=== PATIENT | male | born 1960 | race Caucasian/White ===

== ENCOUNTER 2016-06-16 19:02 | Emergency (ER) | payer OTHER ==
[2016-06-16 19:20] VITALS: BP 158/88; PULSE 87; TEMP 98.2; BMI 30.1
--- NOTE | 2016-06-16 20:10 | PDOC ---
History of Present Illness <Bob Lockhart - Last Filed: 06/16/16 21:50> - General History Source: Patient, Family Exam Limitations: No Limitations - History of Present Illness Initial Comments: 06/16/16 20:51 The patient is a 56 year old male with no significant past medical history who presents to the emergency department today complaining of a laceration to his left hand. The patient states that he was walking his dog down the stair when his dog suddenly switched directions and he fell and cut his hand on the railing. The patient states that the infected area is tender particularly to palpation. The patient present for further evaluation. The patient denies chest pain, cough, and SOB. The patent denies fever, chills, and sweats. The patient denies nausea, vomiting, and diarrhea. <Yoel Prado - Last Filed: 06/16/16 22:12> - General Chief Complaint: Injury Stated Complaint: MULT LAC LT HAND Past History - Past Medical History Other medical history: DENIES - Immunization History Immunization Up to Date: Yes - Psycho/Social/Smoking Cessation Hx Anxiety: No Suicidal Ideation: No Smoking History: Never smoked <Bob Lockhart - Last Filed: 06/16/16 21:50> <Yoel Prado - Last Filed: 06/16/16 22:12> - Past Medical History Allergies/Adverse Reactions: Allergies Allergy/AdvReac Type Severity Reaction Status Date / Time No Known Allergies Allergy Unverified 06/16/16 19:20 Home Medications: Ambulatory Orders Sulfamethoxazole/Trimethoprim [Bactrim Ds -] 1 tab PO BID #14 tablet 06/16/16 Review of Systems - Review of Systems Able to Perform ROS?: Yes Comments:: 06/16/16 20:55 GENERAL/CONSTITUTIONAL: No fever or chills. No weakness. HEAD, EYES, EARS, NOSE AND THROAT: No change in vision. No ear pain or discharge. No sore throat. CARDIOVASCULAR: No chest pain or shortness of breath. RESPIRATORY: No cough, wheezing, or hemoptysis. GASTROINTESTINAL: No nausea, vomiting, diarrhea or constipation. GENITOURINARY: No dysuria, frequency, or change in urination. MUSCULOSKELETAL: (+) Laceration of the left hand. SKIN: No rash NEUROLOGIC: No headache, vertigo, loss of consciousness, or change in strength/ sensation. ENDOCRINE: No increased thirst. No abnormal weight change. HEMATOLOGIC/LYMPHATIC: No anemia, easy bleeding, or history of blood clots. ALLERGIC/IMMUNOLOGIC: No hives or skin allergy. <Yoel Prado - Last Filed: 06/16/16 22:12> *Physical Exam - Vital Signs Last Vital Signs Temp Pulse Resp BP Pulse Ox 98.2 F 87 18 158/88 100 06/16/16 19:05 06/16/16 19:05 06/16/16 19:05 06/16/16 19:05 06/16/16 19:05 <Bob Lockhart - Last Filed: 06/16/16 21:50> - Vital Signs Last Vital Signs Temp Pulse Resp BP Pulse Ox 98.2 F 87 18 158/88 100 06/16/16 19:05 06/16/16 19:05 06/16/16 19:05 06/16/16 19:05 06/16/16 19:05 - Physical Exam Comments: 06/16/16 20:56 GENERAL: Awake, alert, and fully oriented, in no acute distress HEAD: No signs of trauma EYES: PERRLA, EOMI, sclera anicteric, conjunctiva clear ENT: Auricles normal inspection, hearing grossly normal, nares patent, oropharynx clear without exudates. Moist mucosa NECK: Normal ROM, supple, no lymphadenopathy, JVD, or masses LUNGS: Breath sounds equal, clear to auscultation bilaterally. No wheezes, and no crackles HEART: Regular rate and rhythm, normal S1 and S2, no murmurs, rubs or gallops ABDOMEN: Soft, nontender, normoactive bowel sounds. No guarding, no rebound. No masses EXTREMITIES: (+) 3 cm laceration of the left hand going from the web area towards the thumb along the base of the index finger. Normal range of motion, no edema. No clubbing or cyanosis. No cords. NEUROLOGICAL: Cranial nerves II through XII grossly intact. Normal speech, normal gait SKIN: Warm, Dry, normal turgor, no rashes or lesions noted. <Yoel Prado - Last Filed: 06/16/16 22:12> Medical Decision Making - Medical Decision Making 06/16/16 20:58 MDM: The patient will receive a hand X-Ray. The wound will be cleaned, numbed, sutured, and covered. 06/16/16 21:47 MDM: The patient received 7cc Lidocaine (1%) injected locally, 12 bites continuous running locked 3-o nylon, and antibiotics. The wound was just skin and fat (no nerves, foreign bodies, or tendons). <Yoel Prado - Last Filed: 06/16/16 22:12> *DC/Admit/Observation/Transfer - Discharge Dispostion Admit: No - Attestations Physician Attestion: 06/16/16 20:09 I, Dr. Bob Lockhart, attest that this document has been prepared under my direction and personally reviewed by me in its entirety. I further attest, that it accurately reflects all work, treatment, procedures and medical decision -making performed by me. <Bob Lockhart - Last Filed: 06/16/16 21:50> - Attestations Scribe Attestion: 06/16/16 20:58 Documentation prepared by Yoel Prado, acting as medical reception for Bob Lockhart MD. <Yoel Prado - Last Filed: 06/16/16 22:12> Diagnosis at time of Disposition: Laceration of hand Qualifiers: Encounter type: initial encounter Laterality: left Qualified Code(s): S61.412A - Laceration without foreign body of left hand, initial encounter - Discharge Dispostion Disposition: HOME Condition at time of disposition: Good - Prescriptions Prescriptions: Sulfamethoxazole/Trimethoprim [Bactrim Ds -] 1 tab PO BID #14 tablet - Patient Instructions Printed Discharge Instructions: How to Care for a Surgical Wound-Stitches Additional Instructions: Luís- It was really a pleasure to care for you tonight. Watch it closely and make sure it does not get infected. Return to us if any problems...... Otherwise just listen to your and life will be great! Best- Dr. Rojas (Richy)
[2016-06-16] MEDS ORDERED: LIDOCAINE HCL 2% (20ML MULTI-DOSE VIAL) NR ONE (20:12)
[2016-06-16] MEDS ORDERED: SULFAMETHOXAZOLE/TRIMETHOPRIM 800MG/160MG D.S. TABLET PO ONE (21:49)
[2016-06-16] MEDS ORDERED: SULFAMETHOXAZOLE/TRIMETHOPRIM 800MG/160MG D.S. TABLET ONE (21:52)
== END 2016-06-16 21:53 | disposition home or self-care (01) ==
LOC: FER 19:02
PROC: 0HQGXZZ Repair Left Hand Skin, External Approach (ICD-10-PCS; principal; 2016-06-16)
DX: S61.412A Laceration without foreign body of left hand, initial encounter (principal); W22.09XA Striking against other stationary object, initial encounter; Y93.K1 Activity, walking an animal; Y92.410 Unspecified street and highway as the place of occurrence of the external cause
CPT/HCPCS: 73130-TC-LT; 99282-25